=== PATIENT | female | born 1965 | race Caucasian/White ===

== ENCOUNTER 2016-09-28 20:42 | Emergency (ER) | payer BC ==
[~2016-09-28] VITALS: Ht 165.1 cm; Wt 50.8 kg
--- NOTE | 2016-09-28 20:53 | NUR ---
MC RA FROM HOME; PER EMS, PT TOOK UNKNOWN AMOUNT OF ATIVAN AND TYLENOL PM AND ALCOHOL. PT IS DROWSIE. PT AOX3. RR EVEN AND UNLABORED. NO SOB NOTED. NAD NOTED. NO NVD AT THIS TIME. PT NOT DIAPHORETIC. PT GOWNED AND PLACED ON MONITOR WAITING FOR MD WOODS.
[2016-09-28] MEDS ORDERED: IV NS 0.9% 1,000 ML BAG IV ONE ×2 (21:00→22:00)
[2016-09-28 21:05] LABS: BASOPHILS % (AUTO) 0.4 % (0.0-2.0); EOSINOPHILS # (AUTO) 0.1 /CMM (0.0-0.7); EOSINOPHILS % (AUTO) 0.9 % (0.0-6.0); HEMATOCRIT 44 % (33-45); HEMOGLOBIN 14.4 g/dL (11.5-14.8); LYMPHOCYTES # (AUTO) 3.4 /CMM (0.8-4.8); LYMPHOCYTES % (AUTO) 45.6 % (20.0-44.0); MEAN CORPUSCULAR HEMOGLOBIN 33 PG (26.0-33.0); MEAN CORPUSCULAR HGB CONC 33 g/dl (31.0-36.0); MEAN CORPUSCULAR VOLUME 101 fL (82-100); MONOCYTES # (AUTO) 0.2 /CMM (0.1-1.30); MONOCYTES % (AUTO) 3.3 % (2.0-12.0); NEUTROPHILS # (AUTO) 3.8 /CMM (1.8-8.9); NEUTROPHILS % (AUTO) 49.8 % (43.0-81.0); PLATELET COUNT (AUTO) 345 /CMM (150-450); RDW COEFFICIENT OF VARIATION 14.9 (11.5-15.0); RED BLOOD CELL COUNT(AUTO) 4.35 MIL/uL (4.0-5.2); WHITE BLOOD COUNT (AUTO) 7.5 K/uL (4.3-11.0)
[2016-09-28 21:15] LABS: CALCIUM, SERUM 8.7 mg/dL (8.5-10.1); CARBON DIOXIDE 30 mmol/L (21-32); CHLORIDE 110 mmol/L (98-107); CREATININE 0.8 mg/dL (0.6-1.3); GLUCOSE 108 mg/dL (74-106); POTASSIUM 3.3 mmol/L (3.5-5.1); SODIUM SERUM 147 mmol/L (136-145); UREA NITROGEN, BLOOD 8 mg/dL (7-18)
[2016-09-28 21:30] LABS: ALANINE AMINOTRANSFERASE 27 U/L (12-78); ALBUMIN 3.6 g/dL (3.4-5.0); ALCOHOL, BLOOD 374 mg/dL (0-0); ALKALINE PHOSPHATASE 54 U/L (46-116); ASPARTATE AMINOTRANSFERASE 29 U/L (15-37); BILIRUBIN,DIRECT 0.1 mg/dL (0.0-0.2); BILIRUBIN,TOTAL 0.2 mg/dL (0.2-1.0); TOTAL PROTEIN, SERUM 6.9 g/dL (6.4-8.2)
[2016-09-28 21:31] LABS: ACETAMINOPHEN < 10 ug/ml (10-30); SALICYLATE 0.7 mg/dL (2.8-20.0)
--- NOTE | 2016-09-28 21:55 | NUR ---
URINE COLLECTED. CALLED LAB FOR GUIDANCE CONSULTANT.
[2016-09-28] MEDS ORDERED: POTASSIUM CHLORIDE 20 MEQ TAB.PRT.SR PO ONE ×2 (21:59→22:00)
[2016-09-28 22:20] LABS: APPEARANCE,URINE CLEAR (CLEAR); BILIRUBIN,URINE NEGATIVE (NEGATIVE); BLOOD, URINE NEGATIVE Ery/uL (NEGATIVE); KETONES,URINE NEGATIVE (NEGATIVE); LEUKOCYTE ESTERASE ,URINE NEGATIVE (NEGATIVE); NITRITE, URINE NEGATIVE (NEGATIVE); PROTEIN,URINE NEGATIVE (NEGATIVE); UGLUCOSE NEGATIVE (NEGATIVE); UROBILINOGEN,URINE 0.2 EU/dL (0.2)
[2016-09-28 22:24] LABS: COLOR,URINE STRAW (YELLOW)
--- NOTE | 2016-09-29 03:30 | NUR ---
Patient is resting comfortably in bed with eyes closed. Easily aroused. VSS
--- NOTE | 2016-09-29 05:26 | NUR ---
Patient is resting comfortably in bed with eyes closed. Easily aroused. VSS. pt able to make needs known
--- NOTE | 2016-09-29 06:34 | NUR ---
PT AOX4 PT DENIES HI/SI. PT STATES "I ONLY DRANK WINE, I DID NOT TAKE ANY DRUGS"
--- NOTE | 2016-09-29 06:36 | NUR ---
AKILA FREEMAN MADE AWARE.
--- NOTE | 2016-09-29 06:50 | NUR ---
DR. WILBURN AT BEDSIDE FOR EVAL.
[2016-09-29] MEDS ORDERED: IV NS 0.9% 1,000 ML BAG IV ONE (07:00)
--- NOTE | 2016-09-29 07:09 | NUR ---
REPORT GIVEN TO KATEY KINGSTON FOR CONTINUE OF CARE.
--- NOTE | 2016-09-29 08:15 | NUR ---
IV removed. Catheter intact and site benign. Pressure and 4x4 applied to site. No bleeding noted.
--- NOTE | 2016-09-29 08:20 | NUR ---
PT SPOKE TO DAD AND MOM OVER THE PHONE. PT VERBALIZED SHE IS OK AT THE HOSPITAL AND WAITING FOR CRISIS TEAM AND ONCE SHE IS CLEARED WILL GO HOME .
--- NOTE | 2016-09-29 08:25 | NUR ---
PT AWAKE ALERT ORIENTED AMBULATORY WITHOUT ASSISTANCE STEADY GAIT DURING TRANSFER TO ANOTHER ROOM . PT ABLE TO MAKE DECISION.
--- NOTE | 2016-09-29 08:25 | NUR ---
PT WAS MOVED TO ER BED1 WILL AWAITING SITTER PT LEFT UNNOTICED [facility].
[2016-09-29 08:28] VITALS: BP 112/77
--- NOTE | 2016-09-29 08:37 | NUR ---
CALLED CLINICIAN -- [facility] [phone] SHE WILL BE HERE IN 60MIN
--- NOTE | 2016-09-29 08:40 | NUR ---
SUSAN DEL TORO,HOUSE SUP, CALLED FOR A SITTER
--- NOTE | 2016-09-29 08:59 | NUR ---
[facility] CALLED,SPOKE WITH ASSOCIATE PROFESSOR OF THEAT[phone],STS, SHE WILL SEND A UNIT
--- NOTE | 2016-09-29 09:53 | NUR ---
[facility] WAS HERE. DR WILBURN TOLD [facility] AND NOTES PT NOT SUICIDAL .
--- NOTE | 2016-09-29 10:09 | NUR ---
Patient eloped from facility. ER MD DR WILBURN notified.
== END 2016-09-29 10:16 | disposition left against medical advice (07) ==
LOC: ER 20:43 → TELE-TD 22:24 → UNDOADMIN 22:24 → ER 09-29 10:16
DX: F10.129 Alcohol abuse with intoxication, unspecified (principal); F25.9 Schizoaffective disorder, unspecified; R45.6 Violent behavior; F32.9 Major depressive disorder, single episode, unspecified; Y90.8 Blood alcohol level of 240 mg/100 ml or more
CPT/HCPCS: 36415; 80048-TC; 80076-TC; 80305; 81000-TC; 84703-TC; 85025-TC; A4606; G0480; J3490; J7030; Z7610

== ENCOUNTER 2020-09-02 10:24 | Inpatient (IN) | payer MEDICAID, MEDICARE ==
[~2020-09-02] VITALS: Ht 162.6 cm; Wt 57.2 kg
--- NOTE | 2020-09-02 11:30 | NUR ---
RN NOTE- PT IS A 54 Y/O FEMALE BROUGHT INTO FACILITY FROM ANOTHER HOSPITAL ON A CONSERVATORSHIP. A DETAIN AND TREAT ORDER IS SIGNED AND IN THE CHART THOUGH INITIAL HOLD IS UP. ON FACE TO FACE ASSESSMENT, PT IS ALERT ORIENTED TO PERSON PLACE, HYPERVERBAL W PRESSURED SPEECH AND LOOSE ASSOCIATIONS. PT TALKS ABOUT HER MEDS "I HAVEN'T HAD MY ADDERALL AND I NEED MY MORNING MEDS." FOCUS ON MEDS AND DC. OPPOSITIONAL TO CARE AT START. REFUSED TO GIVE UP BRA W WIRE. PT CONSENTED AFTER SPEAKING W THIS RN. VS- BP- 134/84, HR- 63, RR- 20, T-97.7, SATS 99% RA. ACCU CHECK COMPLETED / BS - 98, MRSA SWAB COMPLETED. PT AMBULATORY, SKIN INTACT EXCEPT DOG BITE TO ANTECUBITAL ASPECT RT ARM. RESOLVING CELLULITIS. NOT OPEN AT PRESENT. WOUND CONSUL ORDERED. 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 PT TOX SCREEN + FOR BENZO /METH. LABS WNL . ALLERGIES - SULFA. AMPICILLIN, LACTOSE INTOLERANCE. PT VALUABLES STORED PER POLICY. REFUSES VACCINATIONS. REG VEG DIET ORDERED. ORIENTED TO UNIT. PT RIGHTS HANDBOOK GIVEN. PT HOLD ORIGINALLY WRITTEN SHE BECAME AGGRESSIVE AT HOME W FAMILY BY PUSHING MOTHER. DR MCCONNELL NOTIFIED ADMIT. ORDERS GIVEN. COMPLIED, DR IZAGUIRRE NOTIFIED OF ADMIT .
[2020-09-02] MEDS ORDERED: ARIP15TA18 PO (11:46)
[2020-09-02] MEDS ORDERED: TRAZ-257 PO (11:46)
[2020-09-02] MEDS ORDERED: ESCI10TA PO (11:46)
[2020-09-02] MEDS ORDERED: DEXT30TA10 PO (11:46)
[2020-09-02] MEDS ORDERED: METF-881 PO (11:46)
[2020-09-02] MEDS ORDERED: IBUP-1957 PO (11:46)
[2020-09-02] MEDS ORDERED: LEVO88TA5 PO (11:46)
[2020-09-02] MEDS ORDERED: LORAZEPAM 0.5 MG TABLET PO PRN (12:00)
[2020-09-02] MEDS ORDERED: BLOOD SUGAR DIAGNOSTIC 1 EACH STRIP IN ONE (12:00)
[2020-09-02] MEDS ORDERED: MAGNESIUM HYDROXIDE 30 ML UDC PO PRN (12:00)
[2020-09-02] MEDS ORDERED: TEMAZEPAM 7.5 MG CAPSULE PO PRN (12:00)
[2020-09-02] MEDS: IBUPROFEN 400 MG TABLET PO PRN (14:43)
--- NOTE | 2020-09-02 14:45 | NUR ---
RN NOTE- PT W GENERALIZED PAIN AND ANXIETY. IBUPROFEN 800 MG AND ATIVAN 0.5 MG GIVEN
--- NOTE | 2020-09-02 15:33 | NUR ---
RN NOTE- PT FOCUSED ON RX , CONSTANTLY WALKING TO RN STATION WINDOW DEMANDING PILLS, "I NEED MY TRAZADONE AND ADDERALL." PT HAS APPROACHED DESK ABOUT EVERY FIVE TO TEN MINUTES REQUESTING PILLS. DIRECTED BACK TO ROOM AND UNIT,.ATIVAN 0.5 GIVEN EARLIER WITH NO DECREASE IN BEHAVIORS. DR MCCONNELL AWARE.
[2020-09-02 16:00] VITALS: BP 151/99
[2020-09-02] MEDS: LORAZEPAM 1 MG TABLET PO PRN ×2 (16:25→22:31)
--- NOTE | 2020-09-02 16:25 | NUR ---
RN NOTE- PT W CONTINUED ESCALATING BEHAVIORS. DR MCCONNELL CHANGED RX TO ATIVAN 1 MG PO Q6H PRN FIRST DOSE NOW. COMPLIED AND GIVEN
[2020-09-02] MEDS ORDERED: OLANZAPINE 10 MG VIAL IM STA (19:28)
--- NOTE | 2020-09-02 19:29 | NUR ---
RN NOTE- PT LABILE PACING CONTINUED MED REQUESTS AND AGITATION. PT UNABLE TO BE REDIRECTED. STATES "IM LEAVING." PT REQUESTING SHOT. DR MCCONNELL NOTIFIED. ZYPREXA 5 MG IM STAT ORDERED.
[2020-09-02 20:00] VITALS: BP 126/74
[2020-09-03 06:14] LABS: BASOPHILS # (AUTO) 0.1 /CMM (0.0-0.2); BASOPHILS % (AUTO) 1.3 % (0.0-2.0); EOSINOPHILS % (AUTO) 2.9 % (0.0-6.0); HEMATOCRIT 40 % (33-45); HEMOGLOBIN 13.8 g/dL (11.5-14.8); LYMPHOCYTES % (AUTO) 35.4 % (20.0-44.0); MEAN CORPUSCULAR HGB CONC 35 g/dl (31.0-36.0); MEAN CORPUSCULAR VOLUME 100 fL (82-100); MONOCYTES # (AUTO) 0.5 /CMM (0.1-1.30); MONOCYTES % (AUTO) 8.3 % (2.0-12.0); NEUTROPHILS # (AUTO) 2.9 /CMM (1.8-8.9); NEUTROPHILS % (AUTO) 52.1 % (43.0-81.0); PLATELET COUNT (AUTO) 280 /CMM (150-450); RED BLOOD CELL COUNT(AUTO) 3.99 MIL/uL (4.0-5.2); WHITE BLOOD COUNT (AUTO) 5.6 K/uL (4.3-11.0)
[2020-09-03 07:03] LABS: ALBUMIN 3.6 g/dL (3.4-5.0); BILIRUBIN,DIRECT 0.1 mg/dL (0.0-0.2); BILIRUBIN,TOTAL 0.3 mg/dL (0.2-1.0); CREATININE 0.8 mg/dL (0.6-1.3); MAGNESIUM 1.8 mg/dL (1.8-2.4); PHOSPHORUS 3.8 mg/dL (2.5-4.9); POTASSIUM 4.5 mmol/L (3.5-5.1); TOTAL PROTEIN, SERUM 6.4 g/dL (6.4-8.2)
[2020-09-03 07:17] LABS: CHOLESTEROL 151 mg/dL (<200); HDL CHOLESTEROL 35 mg/dL (40-60); LDL 85 mg/dL (0-99); TRIGLYCERIDES 180 mg/dL (30-150)
[2020-09-03] MEDS: LEVOTHYROXINE SODIUM 88 MCG TABLET PO SCH ×2 (07:30→09:30)
[2020-09-03 08:00] VITALS: BP 142/72
[2020-09-03 08:21] LABS: THYROID STIMULATING HORMONE 3.224 uIU/mL (0.358-3.74)
[2020-09-03] MEDS: METFORMIN XR 500 MG TAB.SR.24H PO SCH ×2 (09:00→09:30)
--- NOTE | 2020-09-03 09:38 | NUR ---
WOUND CARE CONSULT: PT PRESENTS WITH DISCOLORATION TO RT FOREARM WITH DRY SCABS, PRESENT ON ADMISSION. NO ERYTHEMA, DRAINAGE OR TENDERNESS NOTED. MD TO EXAMINE PT. WILL SEE PRN.
[2020-09-03] MEDS: LORAZEPAM 1 MG TABLET PO PRN ×3 (10:25→22:08)
--- NOTE | 2020-09-03 10:25 | NUR ---
GIVEN ATIVAN 1 MG FOR SEVERE AGITATION.
--- NOTE | 2020-09-03 10:30 | NUR ---
JOSEPH ELLIS RN IN AND SUGGESTED TO TAX EVALUATOR THAT DR. LONGO BE CALLED TO LOOK AT DOG BITE RT. ARM.SLIGHT BRUISING,NO ERYTHEMA OR DRAINAGE.OPEN TO AIR.PT. STATES OCCURRED [address] MO AGO[address]CALL OUT TO DR. LONGO WITH NO RETURN CALL.
[2020-09-03] MEDS: GABAPENTIN 100 MG CAPSULE PO SCH ×2 (13:00→16:48)
--- NOTE | 2020-09-03 13:10 | NUR ---
Conservator Contact: SW contacted the pts conservator, Grabiel ([phone]), and discussed possible placement options for her. He stated that he did not want the pt to return to their home and asked what the SW recommends for placement. SW stated that the usual step down from the hospital is a SNF and stated that assisted livings and board and cares are also an option. Pts conservator stated that he wants referrals to be sent out so that he has options.
[2020-09-03] MEDS: IBUPROFEN 400 MG TABLET PO PRN ×2 (13:50→20:57)
--- NOTE | 2020-09-03 13:58 | NUR ---
given motrin for pain on top of head.teary eyed and still asking for adderall.she did additionally ask dr. zhu for this with her visit today.
--- NOTE | 2020-09-03 14:23 | NUR ---
Initial Discharge Plan: Pt currently resides at her house with her family located at [address] [place] [address]; ([phone]). Per pt, she would like to go home. Per conservator and father, Grabiel ([phone]), the pt needs placement. SW will work with the pt conservator and MD regarding appropriate discharge planning. SW will form a safe and proper discharge.
--- NOTE | 2020-09-03 14:35 | NUR ---
RN NOTE- PT W CONTINUED ESCALATION, YELLING CRYING AND REQUESTING ADDERALL. PT AGITATED AND AGITATING OTHER PTS ON UNIT. DR MCCONNELL NOTIFIED. ZYPREXA 5 MG IM ORDERED STAT. COMPLIED.
[2020-09-03] MEDS ORDERED: OLANZAPINE 10 MG VIAL IM STA (14:36)
--- NOTE | 2020-09-03 14:40 | NUR ---
RN NOTE- ZYPREXA 5 MG IM GIVEN WITH STAFF ASSIST. TOLERATED WELL.
[2020-09-03 16:00] VITALS: BP 129/99
--- NOTE | 2020-09-03 16:10 | NUR ---
heard loud noise,found pt. banging head on wall.
--- NOTE | 2020-09-03 16:16 | NUR ---
given ativan for severe agitation.
--- NOTE | 2020-09-03 16:19 | NUR ---
RN NOTE- PT WAS ASLEEP BUT SHE WOKE UP AND STRUCK HEAD AGAINST WALL SCREAMING "I'M ALLERGIC TO ANTIPSYCHOTICS" NO INJURY NOTED, REDIRECTED, DR MCCONNELL MADE AWARE.
--- NOTE | 2020-09-03 18:15 | NUR ---
THROWING LIQUIDS AND FOOD ON FLOOR,STATES SHE'S VOMITING.
--- NOTE | 2020-09-03 19:30 | NUR ---
GPS-RN NOTES: PATIENT IS PACING BACK AND FORTH IN THE NURSING STATION. PATIENT REMAINS LABILE, MANIPULATIVE, AGITATED, ANXIOUS, CONTINUED MED REQUESTS AND UNABLE TO REDIRECT BEHAVIOR. PATIENT IS REQUESTING FOR IM SHOT. DR. MCCONNELL NOTIFIED BY CHARGE NURSE AND OBTAINED ORDER FOR ZYPREXA 5MG IM STAT NOTED AND CARRIED OUT. WILL CONTINUE TO MONITOR FOR PATIENT'S SAFETY.
[2020-09-03] MEDS ORDERED: OLANZAPINE 10 MG VIAL IM ONE (20:00)
[2020-09-03 20:15] VITALS: BP 144/82
--- NOTE | 2020-09-03 20:59 | NUR ---
GPS-RN NOTES: PATIENT C/O GENERALIZED BODY PAIN, ON A PAIN SCALE OF 7/10. PRN IBUPROFEN 800MG PO GIVEN PER PT'S REQUEST. WILL CONTINUE TO REASSESS.
[2020-09-03] MEDS ORDERED: GABAPENTIN 300 MG CAPSULE PO SCH (22:00)
--- NOTE | 2020-09-03 22:08 | NUR ---
GPS-RN NOTES: ANXIETY PATIENT IS ANXIOUS AND RESTLESS. PRN ATIVAN 1MG PO GIVEN. WILL CONTINUE TO MONITOR FOR PATIENT'S SAFETY.
[2020-09-04] MEDS: IBUPROFEN 400 MG TABLET PO PRN ×3 (06:55→21:06)
--- NOTE | 2020-09-04 06:56 | NUR ---
GPS-RN NOTES: PATIENT C/O PAIN ON TOP OF HEAD ON A PAIN SCALE OF 7/10. PRN MOTRIN 800MG PO GIVEN PER PT'S REQUEST. WILL CONTINUE TO REASSESS.
[2020-09-04 08:00] VITALS: BP 127/65
[2020-09-04] MEDS: METFORMIN XR 500 MG TAB.SR.24H PO SCH ×2 (08:04→08:35)
[2020-09-04] MEDS: LEVOTHYROXINE SODIUM 88 MCG TABLET PO SCH (08:04)
[2020-09-04] MEDS: GABAPENTIN 100 MG CAPSULE PO SCH ×3 (08:04→16:19)
--- NOTE | 2020-09-04 08:35 | NUR ---
Pt. refused to take Glucophage XR, offered 3x and still refusing and said "I'm not taking that med and I'm not diabetic".
[2020-09-04] MEDS: LORAZEPAM 1 MG TABLET PO PRN ×2 (11:14→17:19)
[2020-09-04] MEDS ORDERED: OLANZAPINE 10 MG VIAL IM ONE (12:00)
[2020-09-04] MEDS: ARIPIPRAZOLE 5 MG TABLET PO SCH ×2 (12:00→16:18)
--- NOTE | 2020-09-04 13:19 | NUR ---
Pt. is complaining of head pain and Ibuprofen 800 mg given.
--- NOTE | 2020-09-04 13:59 | NUR ---
Clarified Dr. Sawyer regarding the Zyprexa IM order. To give Zyprexa 5 mg IM prn BID of refused Abilify 5 mg po BID.
[2020-09-04] MEDS ORDERED: OLANZAPINE 10 MG VIAL IM PRN (14:00)
[2020-09-04 16:00] VITALS: BP 141/92
[2020-09-04 19:42] VITALS: BP 124/76
--- NOTE | 2020-09-04 21:06 | NUR ---
GPS-RN NOTES: PATIENT COMPLAINING OF HEAD PAIN. PRN MOTRIN 800MG PO GIVEN. WILL CONTINUE TO MONITOR FOR EFFECTIVENESS OF THE MEDICATION.
[2020-09-04] MEDS: TEMAZEPAM 7.5 MG CAPSULE PO PRN ×2 (21:23→22:14)
--- NOTE | 2020-09-04 22:14 | NUR ---
GPS-RN NOTES: PATIENT C/O INABILITY TO SLEEP. PRN RESTORIL 7.5MG PO GIVEN. WILL CONTINUE TO MONITOR FOR THE EFFECTIVENESS. PRN RESTORIL 7.5MG PO GIVEN @2122 INEFFECTIVE. PRN RESTORIL 7.5MG PO HSMR X1 GIVEN @2213. WILL CONTINUE TO MONITOR.
[2020-09-05] MEDS: LORAZEPAM 1 MG TABLET PO PRN ×4 (00:14→22:32)
--- NOTE | 2020-09-05 00:14 | NUR ---
GPS-RN NOTES: ANXIETY PATIENT IS ANXIOUS AND RESTLESS. PRN ATIVAN 1MG PO GIVEN. WILL CONTINUE TO MONITOR.
[2020-09-05 08:00] VITALS: BP 137/74
[2020-09-05] MEDS: ARIPIPRAZOLE 5 MG TABLET PO SCH (08:54)
[2020-09-05] MEDS: GABAPENTIN 100 MG CAPSULE PO SCH ×3 (08:55→16:28)
[2020-09-05] MEDS: METFORMIN XR 500 MG TAB.SR.24H PO SCH (08:55)
[2020-09-05] MEDS: LEVOTHYROXINE SODIUM 88 MCG TABLET PO SCH (08:55)
[2020-09-05] MEDS: IBUPROFEN 400 MG TABLET PO PRN ×2 (09:12→15:12)
--- NOTE | 2020-09-05 11:13 | NUR ---
GPS RN NOTE: PATIENT IN THE ROOM A/OX3. NO ACUTE DISTRESS NOTED. PATIENT REMAINS ANXIOUS, RESTLESS, MANIPULATIVE, HYPERVERBAL, INTRUSIVE, DEMANDING, NEEDY AND AGITATED.ATIVAN 1 MG PO PRN GIVEN NO VERBALIZATION OF THOUGHTS AND FEELINGS. SAFETY PRECAUTIONS IN PLACE.
--- NOTE | 2020-09-05 15:13 | NUR ---
GPS RN NOTE: PATIENT REQUEST MEDICATIONS FOR ANXIETY.ATIVAN 1 MG PO PRN GIVEN PER ORDER WILL CONTINUE MONITORING
[2020-09-05 16:00] VITALS: BP 156/82
[2020-09-05] MEDS ORDERED: ARIPIPRAZOLE 5 MG TABLET PO SCH (17:00)
[2020-09-05 20:40] VITALS: BP 151/97
[2020-09-05] MEDS ORDERED: GABAPENTIN 100 MG CAPSULE PO ONE (21:00)
[2020-09-05] MEDS: HYDROCODONE/APAP 5/325MG TABLET PO PRN (21:20)
[2020-09-06] MEDS: HYDROCODONE/APAP 5/325MG TABLET PO PRN ×4 (03:53→22:31)
[2020-09-06] MEDS: LORAZEPAM 1 MG TABLET PO PRN ×3 (06:30→18:37)
[2020-09-06 08:00] VITALS: BP 147/74
[2020-09-06] MEDS ORDERED: ARIPIPRAZOLE 5 MG TABLET PO SCH (08:36)
[2020-09-06] MEDS ORDERED: OLANZAPINE 10 MG VIAL IM PRN (09:00)
[2020-09-06] MEDS: ARIPIPRAZOLE 5 MG TABLET PO SCH ×2 (09:57→20:08)
[2020-09-06] MEDS: METFORMIN XR 500 MG TAB.SR.24H PO SCH (09:57)
[2020-09-06] MEDS: LEVOTHYROXINE SODIUM 88 MCG TABLET PO SCH (09:57)
[2020-09-06] MEDS: GABAPENTIN 100 MG CAPSULE PO SCH ×3 (09:57→17:15)
--- NOTE | 2020-09-06 10:06 | NUR ---
GIVEN NORCO-C/O PAIN LT LEG LATERALLY AND TOP OF HEAD.
--- NOTE | 2020-09-06 12:36 | NUR ---
given ativan for anxiety.
[2020-09-06 16:00] VITALS: BP 134/76
--- NOTE | 2020-09-06 16:07 | NUR ---
GIVEN NORCO FOR LT. LEG PAIN AND PAIN ON TOP OF HEAD.
--- NOTE | 2020-09-06 18:37 | NUR ---
GIVEN ATIVAN 1 MG PO FOR AGITATION.
--- NOTE | 2020-09-06 19:15 | NUR ---
RN OPENING NOTE PATIENT SITTING ON THE BED, A/O X 3. MOOD IS LABILE, AND SEEMS ANXIOUS, ALTHOUGH PATIENT IS COOPERATIVE. PATIENT DOES NOT SEEM TO BE IN ANY APPARENT DISTRESS. BREATHING EVEN AND UNLABORED. PATIENT IS AMBULATORY AND INDEPENDENT. SAFETY MEASURES IN PLACE: SIDE RAILS UP, BED IN LOCKED AND LOWEST POSITION. WILL MONITOR PATIENT CLOSELY.
[2020-09-06] MEDS: IBUPROFEN 400 MG TABLET PO PRN (20:08)
--- NOTE | 2020-09-06 20:08 | NUR ---
PATIENT GIVEN IBUPROFEN FOR LEG PAIN.
[2020-09-06 20:18] VITALS: BP 138/78
--- NOTE | 2020-09-06 22:30 | NUR ---
PATIENT GIVEN NORCO FOR PAIN ON BILATERAL LEGS.
[2020-09-07] MEDS: LORAZEPAM 1 MG TABLET PO PRN ×4 (01:05→22:00)
--- NOTE | 2020-09-07 01:07 | NUR ---
PATIENT REQUESTED ATIVAN FOR FEELING ANXIOUS. ATIVAN GIVEN, WILL RE-ASSESS BEHAVIOR.
[2020-09-07] MEDS: HYDROCODONE/APAP 5/325MG TABLET PO PRN ×2 (04:33→13:28)
--- NOTE | 2020-09-07 04:34 | NUR ---
NORCO GIVEN FOR THROBBING HEAD PAIN 10/21.
--- NOTE | 2020-09-07 06:40 | NUR ---
RN CLOSING NOTE PATIENT SEEN WITH EYES CLOSED, EASILY AWAKENED. STABLE AT THIS TIME, NO COMPLAINS OF PAIN OR DISCOMFORT. NO SIGNIFICANT CHANGES THROUGHOUT THE SHIFT. ALL NEEDS MET AND ATTENDED. ALL ORDERS CARRIED OUT. PAIN MANAGED. WILL ENDORSE TO DAY SHIFT NURSE FOR ISADORA.
[2020-09-07 08:00] VITALS: BP 122/69
[2020-09-07] MEDS: LEVOTHYROXINE SODIUM 88 MCG TABLET PO SCH (08:12)
[2020-09-07] MEDS: ARIPIPRAZOLE 5 MG TABLET PO SCH ×2 (09:23→21:21)
[2020-09-07] MEDS: METFORMIN XR 500 MG TAB.SR.24H PO SCH (09:23)
[2020-09-07] MEDS: GABAPENTIN 100 MG CAPSULE PO SCH ×3 (09:23→16:37)
--- NOTE | 2020-09-07 13:28 | NUR ---
RN-CO: NORCO GIVEN FOR 8/10 THROBBING PAIN.
--- NOTE | 2020-09-07 14:58 | NUR ---
RN-CO:PATIENT'S NORCO WAS CHANGED FROM Q6H TO Q8H PRN FOR PAIN, PER RECOMMENDATION OF DR MCCONNELL TO DR LONGO.
[2020-09-07 16:00] VITALS: BP 130/80
[2020-09-07] MEDS: IBUPROFEN 400 MG TABLET PO PRN (17:40)
--- NOTE | 2020-09-07 17:41 | NUR ---
RN-CO: IBUPROFEN 800 MG PO FOR LEFT LEG PAIN 08/21.
[2020-09-07] MEDS: TEMAZEPAM 7.5 MG CAPSULE PO PRN (20:25)
[2020-09-07] MEDS: ACETAMINOPHEN 325 MG TABLET PO PRN (20:27)
[2020-09-07 20:29] VITALS: BP 161/90
[2020-09-08] MEDS: IBUPROFEN 400 MG TABLET PO PRN ×2 (00:46→15:03)
[2020-09-08] MEDS: HYDROCODONE/APAP 5/325MG TABLET PO PRN ×3 (01:45→18:06)
[2020-09-08 08:00] VITALS: BP 146/90
[2020-09-08] MEDS: GABAPENTIN 100 MG CAPSULE PO SCH ×3 (08:17→16:39)
[2020-09-08] MEDS: LORAZEPAM 1 MG TABLET PO PRN ×2 (08:17→16:39)
[2020-09-08] MEDS: LEVOTHYROXINE SODIUM 88 MCG TABLET PO SCH (08:17)
[2020-09-08] MEDS: METFORMIN XR 500 MG TAB.SR.24H PO SCH (08:17)
[2020-09-08] MEDS: ARIPIPRAZOLE 5 MG TABLET PO SCH ×2 (08:17→20:27)
[2020-09-08 16:00] VITALS: BP 144/89
--- NOTE | 2020-09-08 16:00 | NUR ---
SNF Referral: KATHLEEN faxed a referral to [facility] with attn to Afia to the fax number: [phone]. Addendum: 09/08/2020 at 1402 by KATHLEEN Ferreira
--- NOTE | 2020-09-08 16:04 | NUR ---
[facility] Ref[facility]
[2020-09-08 20:00] VITALS: BP 136/73
[2020-09-08] MEDS: ACETAMINOPHEN 325 MG TABLET PO PRN (20:26)
[2020-09-09] MEDS: LORAZEPAM 1 MG TABLET PO PRN ×3 (00:39→17:11)
[2020-09-09] MEDS: HYDROCODONE/APAP 5/325MG TABLET PO PRN ×3 (02:33→18:40)
[2020-09-09 08:00] VITALS: BP 136/70
[2020-09-09] MEDS: ARIPIPRAZOLE 5 MG TABLET PO SCH ×2 (08:54→21:08)
[2020-09-09] MEDS: LEVOTHYROXINE SODIUM 88 MCG TABLET PO SCH (08:54)
[2020-09-09] MEDS: METFORMIN XR 500 MG TAB.SR.24H PO SCH (08:55)
[2020-09-09] MEDS: GABAPENTIN 100 MG CAPSULE PO SCH ×3 (08:55→17:11)
--- NOTE | 2020-09-09 09:09 | NUR ---
given ativan for nervousness.
--- NOTE | 2020-09-09 10:44 | NUR ---
given norco for pain at this time.
[2020-09-09] MEDS: IBUPROFEN 400 MG TABLET PO PRN (15:06)
--- NOTE | 2020-09-09 15:09 | NUR ---
given motrin for pain.
[2020-09-09 16:00] VITALS: BP 135/83
--- NOTE | 2020-09-09 17:11 | NUR ---
given ativan for agitation.
--- NOTE | 2020-09-09 18:40 | NUR ---
given norco for pain in leg and head.
[2020-09-09 20:00] VITALS: BP 132/64
[2020-09-09 20:22] VITALS: BP 132/64
[2020-09-09] MEDS: TEMAZEPAM 7.5 MG CAPSULE PO PRN (22:01)
--- NOTE | 2020-09-09 22:03 | NUR ---
RN NOTE: INSOMNIA PATIENT VERBALIZED THAT SHE IS UNABLE TO SLEEP & REQUESTED TO TAKE SLEEPING MEDICINE. PRN RESTORIL 7.5 MG 1 CAP PO ADMINISTERED. WILL CONTINUE TO MONITOR.
[2020-09-10] MEDS: LORAZEPAM 1 MG TABLET PO PRN ×2 (01:36→09:46)
--- NOTE | 2020-09-10 01:39 | NUR ---
RN NOTE: ANXIETY PATIENT VERBALIZED THAT SHE IS FEELING ANXIOUS, RESTLESS & REQUESTED TO TAKE ATIVAN. ATIVAN 1 MG PO PRN ADMINISTERED ORDERED. WILL MONITOR CLOSELY.
[2020-09-10] MEDS: HYDROCODONE/APAP 5/325MG TABLET PO PRN ×3 (03:11→19:55)
--- NOTE | 2020-09-10 03:12 | NUR ---
RN NOTE: PAIN PATIENT C/O RIGHT/LEFT LEG PAIN 5/10 & REQUESTED TO TAKE NORCO AT THIS TIME. PRN NORCO 5/325 MG 1 TAB PO ADMINISTERED. VITALS WNL. WILL CONTINUE TO MONITOR.
[2020-09-10] MEDS: IBUPROFEN 400 MG TABLET PO PRN ×2 (07:34→16:22)
[2020-09-10] MEDS: LEVOTHYROXINE SODIUM 88 MCG TABLET PO SCH (07:34)
--- NOTE | 2020-09-10 07:34 | NUR ---
RN NOTE- C/O GENERALIZED PAIN . MOTRIN 800 MG GIVEN
[2020-09-10 08:00] VITALS: BP 138/71
[2020-09-10] MEDS: METFORMIN XR 500 MG TAB.SR.24H PO SCH (08:05)
[2020-09-10] MEDS: GABAPENTIN 100 MG CAPSULE PO SCH ×3 (08:05→16:22)
[2020-09-10] MEDS: ARIPIPRAZOLE 5 MG TABLET PO SCH ×2 (08:05→20:20)
--- NOTE | 2020-09-10 09:00 | NUR ---
RN NOTE- RT W RAPID SPEECH HYPERVERBAL GRANDIOSE ,REQUESTING RX VIRTUALLY ON THE HOUR. DIRECTABLE HOWEVER W LIMITS SET, MED COMPLIANT PO INTAKE GOOD
--- NOTE | 2020-09-10 09:00 | NUR ---
RN NOTE- PT W ANXIETY. ATIVAN 1 MG GIVEN
[2020-09-10 16:00] VITALS: BP 126/82
--- NOTE | 2020-09-10 16:22 | NUR ---
RN NOTE- C/O PAIN GENERALIZED./ MOTRIN 800 MG GIVEN
[2020-09-10 20:17] VITALS: BP 141/88
[2020-09-11] MEDS: LORAZEPAM 1 MG TABLET PO PRN ×3 (01:52→20:04)
[2020-09-11] MEDS: HYDROCODONE/APAP 5/325MG TABLET PO PRN ×3 (04:56→21:27)
[2020-09-11 08:00] VITALS: BP 125/75
[2020-09-11] MEDS: LEVOTHYROXINE SODIUM 88 MCG TABLET PO SCH (08:09)
[2020-09-11] MEDS: GABAPENTIN 100 MG CAPSULE PO SCH ×3 (08:09→17:31)
[2020-09-11] MEDS: METFORMIN XR 500 MG TAB.SR.24H PO SCH (08:09)
[2020-09-11] MEDS: ARIPIPRAZOLE 5 MG TABLET PO SCH ×2 (08:10→21:14)
[2020-09-11] MEDS: IBUPROFEN 400 MG TABLET PO PRN ×2 (08:18→17:31)
--- NOTE | 2020-09-11 08:20 | NUR ---
RN NOTE - Motrin PRN given for headache. Patient compliant with meds, attention seeking, anxious, repeatedly requests to "speak with the doctor so I can get my adderol."
--- NOTE | 2020-09-11 12:10 | NUR ---
RN NOTE - Pt stating she is feeling anxious, requesting for Ativan. Ativan PRN given.
--- NOTE | 2020-09-11 13:19 | NUR ---
SNF Referral: SNF Referral: KATHLEEN faxed a referral to [facility] to the fax number: [phone].
--- NOTE | 2020-09-11 13:25 | NUR ---
RN NOTE - Shawn given PRN for left lower leg pain.
[2020-09-11 16:00] VITALS: BP 132/67
--- NOTE | 2020-09-11 16:22 | NUR ---
SNF referral: KATHLEEN faxed referral to [facility] at fax number: ([phone]).
--- NOTE | 2020-09-11 16:25 | NUR ---
SNF Referral: SW was in contacted with Timoteo at [facility] ([phone]). Pt was accepted to facility. SW is waiting on discharge date from doctor.
--- NOTE | 2020-09-11 20:06 | NUR ---
GPS RN NOTES PATIENT REPORT OF BEING ANXIOUS AT THIS TIME. ASKED FOR ATIVAN. GIVEN ATIVAN 1 MG PRN.
[2020-09-11 20:55] VITALS: BP 144/92
--- NOTE | 2020-09-11 21:28 | NUR ---
GPS RN NOTES PATIENT C/O 7/10 PAIN. PATIENT ASKED FOR GIVEN NORCO . GIVEN NORCO 5/325 PRN. WILL REASSESS.
[2020-09-11] MEDS: TEMAZEPAM 7.5 MG CAPSULE PO PRN (22:36)
--- NOTE | 2020-09-11 22:36 | NUR ---
GPS RN NOTES PATENT ASKED FOR RESTORIL. GIVEN RESTORIL PRN. WILL REASSESS.
[2020-09-12] MEDS: LORAZEPAM 1 MG TABLET PO PRN ×3 (04:05→20:46)
--- NOTE | 2020-09-12 04:05 | NUR ---
GPS RN NOTES PATENT GIVEN ATIVAN PRN AT THIS TIME.
[2020-09-12] MEDS: HYDROCODONE/APAP 5/325MG TABLET PO PRN ×3 (05:34→21:47)
--- NOTE | 2020-09-12 05:35 | NUR ---
GPS RN NOTES PATIENT GIVEN NORCO AT THIS TIME. COMPLAINING OF 7/10 PAIN. FACIAL GRIMACING, GRASPING SITE, AND IRRITABILITY.
--- NOTE | 2020-09-12 06:39 | NUR ---
GPS RN CLOSING NOTE PATIENT IN BED WITH EYES CLOSED, EASY TO AROUSE. NO S/S OF DISTRESS. PAIN MANAGED WITH MEDICATIONS. ALL NEEDS ATTENDED. SCHED MEDS ADMINISTERED. SAFETY KEPT THE WHOLE SHIFT. DID NOT REPORT ANY SUICIDAL IDEATION OR HOMICIDAL IDEATION. NO SIGNIFICANT CHANGE SINCE LAST SHIFT. WILL ENDORSE CARE TO MORNING RN.
[2020-09-12] MEDS: LEVOTHYROXINE SODIUM 88 MCG TABLET PO SCH ×2 (07:30→07:56)
[2020-09-12] MEDS: GABAPENTIN 100 MG CAPSULE PO SCH ×3 (07:55→16:41)
[2020-09-12] MEDS: METFORMIN XR 500 MG TAB.SR.24H PO SCH ×2 (07:56→09:00)
[2020-09-12] MEDS: ARIPIPRAZOLE 5 MG TABLET PO SCH ×2 (07:56→20:46)
[2020-09-12 08:00] VITALS: BP 133/74
--- NOTE | 2020-09-12 13:20 | NUR ---
Point of contact: SW called pts SW contacted the pts conservatorGrabiel ([phone]) to inform him that pt has been accepted to [facility] and there is not discharge date. Conservator does not want to discharge pt to [facility].
[2020-09-12 16:00] VITALS: BP 142/76
[2020-09-12] MEDS: IBUPROFEN 400 MG TABLET PO PRN (17:30)
--- NOTE | 2020-09-12 20:00 | NUR ---
RN NOTES ALERT/ORIENTED X3, ROOM AIR, RESTLESS, ATTENTION SEEKING, DRUG SEEKING, ANXIOUS TO GET ATIVAN AND NORCO EARLY. COMPLAINING OF HEADACHE, ANXIETY, INDEPENDENT WITH ADLS, AMBULATORY.
[2020-09-12 20:33] VITALS: BP 129/62
[2020-09-12] MEDS: MAG HYDROX/AL HYDROX/SIMETH 30 ML UDC PO PRN (22:51)
[2020-09-13] MEDS: TEMAZEPAM 7.5 MG CAPSULE PO PRN (02:02)
[2020-09-13] MEDS: LORAZEPAM 1 MG TABLET PO PRN ×3 (04:47→21:47)
[2020-09-13] MEDS: HYDROCODONE/APAP 5/325MG TABLET PO PRN ×3 (05:58→23:35)
[2020-09-13] MEDS: LEVOTHYROXINE SODIUM 88 MCG TABLET PO SCH (07:30)
[2020-09-13 08:00] VITALS: BP 124/83
[2020-09-13] MEDS: GABAPENTIN 100 MG CAPSULE PO SCH ×3 (08:09→17:34)
[2020-09-13] MEDS: ARIPIPRAZOLE 5 MG TABLET PO SCH ×2 (08:09→21:01)
[2020-09-13] MEDS: METFORMIN XR 500 MG TAB.SR.24H PO SCH (08:14)
[2020-09-13] MEDS: IBUPROFEN 400 MG TABLET PO PRN ×2 (08:46→17:47)
[2020-09-13 16:00] VITALS: BP 151/92
[2020-09-13 20:25] VITALS: BP 138/90
--- NOTE | 2020-09-13 21:51 | NUR ---
RN NOTE: ANXIETY PATIENT VERBALIZED THAT SHE IS FEELING ANXIOUS, RESTLESS, INSISTED & REQUESTED TO TAKE ATIVAN. ATIVAN 1 MG PO PRN ADMINISTERED ORDERED. WILL MONITOR CLOSELY.
--- NOTE | 2020-09-13 23:36 | NUR ---
RN NOTE: PAIN PATIENT C/O GENERALIZED BODY ACHE 08/21 & REQUESTED TO TAKE NORCO AT THIS TIME. PRN NORCO 5/325 MG 1 TAB PO ADMINISTERED. VITALS ARE 143/86, 77, 18, 98, 99% AT RA. WILL CONTINUE TO MONITOR.
[2020-09-14] MEDS: TEMAZEPAM 7.5 MG CAPSULE PO PRN (01:51)
[2020-09-14] MEDS: LORAZEPAM 1 MG TABLET PO PRN ×2 (06:22→15:59)
--- NOTE | 2020-09-14 06:25 | NUR ---
RN NOTE: ANXIETY PATIENT VERBALIZED THAT SHE IS FEELING ANXIOUS, CRYING, IRRITABLE, AGITATED, RESTLESS, REQUESTED TO TAKE ATIVAN. ATIVAN 1 MG PO PRN ADMINISTERED ORDERED. WILL MONITOR CLOSELY.
[2020-09-14] MEDS: LEVOTHYROXINE SODIUM 88 MCG TABLET PO SCH (07:30)
[2020-09-14] MEDS: HYDROCODONE/APAP 5/325MG TABLET PO PRN ×2 (07:57→20:14)
[2020-09-14 08:00] VITALS: BP 143/92
[2020-09-14] MEDS: METFORMIN XR 500 MG TAB.SR.24H PO SCH (08:18)
[2020-09-14] MEDS: GABAPENTIN 100 MG CAPSULE PO SCH ×3 (08:19→16:05)
[2020-09-14] MEDS: ARIPIPRAZOLE 5 MG TABLET PO SCH ×2 (08:20→21:38)
[2020-09-14] MEDS: IBUPROFEN 400 MG TABLET PO PRN ×2 (10:52→17:41)
--- NOTE | 2020-09-14 15:00 | NUR ---
GPS/RN PT'S FATHER REQUESTED TO TAPER OFF NORCO (EXTENDING TIME BETWEEN ADMINISTRATIONS) AND TO ASK PSYCHIATRIST TO CALL HIM BACK. GIOVANNY WALDEN CALLED FOR NEW ORDERS ON NORCO. DR MCCONNELL CALLED AND MADE AWARE OF PT FAMILY REQUEST.
[2020-09-14 16:00] VITALS: BP 153/91
[2020-09-14 20:10] VITALS: BP 144/83
[2020-09-14 20:57] VITALS: BP 144/83
[2020-09-14] MEDS: MAG HYDROX/AL HYDROX/SIMETH 30 ML UDC PO PRN (22:44)
--- NOTE | 2020-09-14 22:46 | NUR ---
RN NOTE: INDIGESTION PATIENT C/O UPSET STOMACH & REQUESTED TO TAKE MEDICINE. PRN MAALOX ADMINISTERED ORDERED. WILL CONTINUE TO MONITOR.
[2020-09-15] MEDS: LORAZEPAM 1 MG TABLET PO PRN ×3 (01:16→17:33)
--- NOTE | 2020-09-15 01:18 | NUR ---
RN NOTE: ANXIETY PATIENT VERBALIZED THAT SHE IS FEELING ANXIOUS, RESTLESS, REQUESTED TO TAKE ATIVAN. ATIVAN 1 MG PO PRN ADMINISTERED ORDERED. WILL MONITOR CLOSELY.
[2020-09-15 08:00] VITALS: BP 140/83
[2020-09-15] MEDS: ARIPIPRAZOLE 5 MG TABLET PO SCH (08:00)
[2020-09-15] MEDS: LEVOTHYROXINE SODIUM 88 MCG TABLET PO SCH (08:00)
[2020-09-15] MEDS: HYDROCODONE/APAP 5/325MG TABLET PO PRN ×2 (08:00→20:07)
[2020-09-15] MEDS: GABAPENTIN 100 MG CAPSULE PO SCH ×3 (08:00→16:24)
[2020-09-15] MEDS: METFORMIN XR 500 MG TAB.SR.24H PO SCH (08:00)
--- NOTE | 2020-09-15 09:00 | NUR ---
RN NOTE- CONTINUES W CONSTANT MED SEEKING BEHAVIORS. RECEIVED PT IN BED RESTING, EASY TO AROUSE. NO C/O PAIN AT THIS TIME. NO S/S OF APPARENT DISTRESS. PT IS AMBULATORY.VSS. DAILY MEDS COMPLIANT
--- NOTE | 2020-09-15 09:23 | NUR ---
RN NOTE- ANXIETY STATED- ATIVAN 1MG GIVEN
[2020-09-15] MEDS ORDERED: HALOPERIDOL LACTATE INJ 5 MG/ML VIAL IM PRN (12:00)
[2020-09-15] MEDS: IBUPROFEN 400 MG TABLET PO PRN ×2 (12:33→23:56)
--- NOTE | 2020-09-15 12:33 | NUR ---
RN NOTE- PAIN STATED GENERALIZED. MOTRIN 800 MG GIVEN
[2020-09-15] MEDS: HALOPERIDOL 5 MG TABLET PO SCH ×2 (12:44→16:24)
[2020-09-15 16:00] VITALS: BP 155/81
[2020-09-15] MEDS: BENZTROPINE MESYLATE (1 MG) 1 MG TABLET PO SCH (16:24)
--- NOTE | 2020-09-15 17:33 | NUR ---
RN NOTE-- PACING IN HALLS PROFANE, SCREAMING AT FATHER ON PHONE, LEAVING RASH MESSAGES. EXPLAINED THAT ATIVAN IS NOW Q12 H AND THIS WOULD BE HER LAST DOSE UNTIL TOMORROW MORNING. PACKAGE COLLECTOR EXPLAINED TO PT BUT SHE INSISTS ON ATIVAN NOW. ATIVAN 1 MG GIVEN
[2020-09-15 20:05] VITALS: BP 144/88
--- NOTE | 2020-09-15 20:08 | NUR ---
RN NOTE: PAIN PATIENT C/O GENERALIZED BODY PAIN 5/10, REQUESTED TO TAKE NORCO AT THIS TIME. PRN NORCO 5/325 MG 1 TAB PO ADMINISTERED. VS WNL. WILL CONTINUE TO MONITOR CLOSELY.
--- NOTE | 2020-09-15 23:59 | NUR ---
RN NOTE PATIENT C/O LEFT LEG PAIN 06/21 & REQUESTED TO TAKE IBUPROFEN AT THIS TIME. PRN IBUPROFEN 800 MG PO ADMINISTERED. WILL CONTINUE TO MONITOR.
[2020-09-16] MEDS: TEMAZEPAM 7.5 MG CAPSULE PO PRN ×2 (01:04→23:16)
[2020-09-16] MEDS: LORAZEPAM 1 MG TABLET PO PRN ×2 (05:34→16:46)
--- NOTE | 2020-09-16 05:35 | NUR ---
RN NOTE: ANXIETY PATIENT VERBALIZED THAT SHE IS FEELING ANXIOUS, RESTLESS, REQUESTED TO TAKE ATIVAN. ATIVAN 1 MG PO PRN ADMINISTERED ORDERED. WILL MONITOR CLOSELY.
[2020-09-16 08:00] VITALS: BP 144/74
[2020-09-16] MEDS: HALOPERIDOL 5 MG TABLET PO SCH ×3 (08:05→16:46)
[2020-09-16] MEDS: METFORMIN XR 500 MG TAB.SR.24H PO SCH (08:05)
[2020-09-16] MEDS: GABAPENTIN 100 MG CAPSULE PO SCH ×3 (08:05→17:25)
[2020-09-16] MEDS: BENZTROPINE MESYLATE (1 MG) 1 MG TABLET PO SCH ×2 (08:05→16:46)
[2020-09-16] MEDS: LEVOTHYROXINE SODIUM 88 MCG TABLET PO SCH (08:06)
[2020-09-16] MEDS: HYDROCODONE/APAP 5/325MG TABLET PO PRN ×2 (08:21→21:41)
--- NOTE | 2020-09-16 09:00 | NUR ---
RN NOTE-FIRST CONTACT THIS MORNING, PT ASKING ABOUT NORCO. REPEATED SEVERAL REQUESTS FOR PAINMEDS. NO S/S OF APPARENT DISTRESS. PT IS AMBULATORY.VSS. DAILY MEDS COMPLIANT
--- NOTE | 2020-09-16 10:06 | NUR ---
Discharge Plan Update Spoke with Grabiel Palacio #[phone] ( father). He spoke with Dr Mcgovern yesterday and Dr Mcgovern has made medication changes. Father does not want patient to go to [facility] as " the average age of patients is 80 there". He wants a facility with younger patients. Will discuss with assigned social service technician, Father is somewhat unrealistic. material preparation worker will explore other facilities but father may need some education around placement. [facility] has younger residents as well. Spoke with Dr Mcgovern who spoke to father/dick yesterday.
[2020-09-16] MEDS: IBUPROFEN 400 MG TABLET PO PRN ×2 (12:23→23:26)
--- NOTE | 2020-09-16 12:23 | NUR ---
RN NOTE- PT C/O PAIN GENERALIZED TO BACK AND HIPS. MOTRIN 800 MG GIVEN
[2020-09-16 16:00] VITALS: BP 144/75
--- NOTE | 2020-09-16 16:46 | NUR ---
RN NOTE- ANXIETY RESTLESSNESS AGITATION, CURSING ON PHONE AT FATHER AND THREATENING. ATIVAN 1 MG GIVEN
[2020-09-16 20:24] VITALS: BP 145/93
--- NOTE | 2020-09-16 21:41 | NUR ---
RN NOTE ADMINISTER NORCO PER PATIENT REQUEST FOR LEFT LEG PAIN 08/21. WILL CONTINUE TO MONITOR THROUGHOUT THE SHIFT.
[2020-09-16] MEDS: MAG HYDROX/AL HYDROX/SIMETH 30 ML UDC PO PRN (23:16)
--- NOTE | 2020-09-16 23:28 | NUR ---
RN NOTE ADMINISTERED RESTORIL AND MAALOX PER PATIENT REQUEST. PATIENT ALSO REQUESTED MOTRIN FOR HER LEG PAIN. WILL CONTINUE TO MONITOR THROUGHOUT SHIFT.
[2020-09-17] MEDS: LORAZEPAM 1 MG TABLET PO PRN ×2 (05:03→17:15)
[2020-09-17] MEDS: MAG HYDROX/AL HYDROX/SIMETH 30 ML UDC PO PRN (05:52)
--- NOTE | 2020-09-17 05:53 | NUR ---
RN NOTE ADMINISTERED PRN MAALOX PER PATIENT REQUEST. STATES STILL FEEL INDIGESTION. WILL CONTINUE TO MONITOR THROUGHOUT SHIFT.
[2020-09-17 08:00] VITALS: BP 150/85
[2020-09-17] MEDS: LEVOTHYROXINE SODIUM 88 MCG TABLET PO SCH (08:04)
[2020-09-17] MEDS: GABAPENTIN 100 MG CAPSULE PO SCH ×2 (08:22→12:18)
[2020-09-17] MEDS: METFORMIN XR 500 MG TAB.SR.24H PO SCH (08:22)
[2020-09-17] MEDS: HALOPERIDOL 5 MG TABLET PO SCH ×3 (08:22→17:15)
[2020-09-17] MEDS: BENZTROPINE MESYLATE (1 MG) 1 MG TABLET PO SCH ×2 (08:22→17:15)
--- NOTE | 2020-09-17 09:55 | NUR ---
SNF Referral: SW faxed a referral to the following two facilities: [facility] with attn to Jaden to the fax number: [phone] [facility] with attn to Emiliana to the fax number: [phone].
[2020-09-17] MEDS: HYDROCODONE/APAP 5/325MG TABLET PO PRN ×2 (10:13→21:38)
[2020-09-17] MEDS: LISINOPRIL (10MG) 10 MG TABLET PO SCH (10:15)
--- NOTE | 2020-09-17 10:46 | NUR ---
SNF Contact: Emiliana ([phone]) from [facility] contacted the SW and stated that the pt was accepted to their facility.
--- NOTE | 2020-09-17 10:47 | NUR ---
Conservator Contact: KATHLEEN contacted the pts conservator, Grabiel ([phone]), and was unable to make contact or leave a message due to a dial tone.
[2020-09-17] MEDS: IBUPROFEN 400 MG TABLET PO PRN ×2 (12:18→20:03)
--- NOTE | 2020-09-17 12:20 | NUR ---
Family Contact: Pts mother, Zacarias ([phone]), contacted the SW and asked for an update. SW stated that the pt was accepted to [facility] and the pts mother stated that she would go see how the facility is.
--- NOTE | 2020-09-17 13:43 | NUR ---
Family Contact: Pts mother, Zacarias ([phone]), contacted the and stated that she took a virtual tour of [facility] and that she approves of the facility. She stated that she wants to speak with her first and will get back to the the following day.
[2020-09-17 16:08] VITALS: BP 140/88
[2020-09-17] MEDS: GABAPENTIN 300 MG CAPSULE PO SCH (17:15)
[2020-09-17 20:03] VITALS: BP 139/109
--- NOTE | 2020-09-17 20:04 | NUR ---
GPS-RN NOTES: LOWER BACK PAIN PATIENT C/O LOWER BACK PAIN ON A PAIN SCALE OF 6/10. PRN IBUPROFEN 800MG PO GIVEN. WILL CONTINUE TO REASSESS.
[2020-09-17] MEDS: TEMAZEPAM 7.5 MG CAPSULE PO PRN (23:55)
--- NOTE | 2020-09-17 23:55 | NUR ---
GPS-RN NOTES: INSOMNIA PATIEN C/O INABILITY TO SLEEP. PRN RESTORIL 7.5MG PO GIVEN. WILL CONTINUE TO MONITOR.
[2020-09-18] MEDS: TEMAZEPAM 7.5 MG CAPSULE PO PRN (02:19)
[2020-09-18] MEDS: LORAZEPAM 1 MG TABLET PO PRN (04:24)
--- NOTE | 2020-09-18 04:25 | NUR ---
GPS-RN NOTES: ANXIETY PATIENT IS ANXIOUS AND RESTLESS. PRN ATIVAN 1MG PO GIVEN. WILL CONTINUE TO MONITOR.
[2020-09-18 08:00] VITALS: BP 137/92
[2020-09-18] MEDS: HALOPERIDOL 5 MG TABLET PO SCH ×4 (08:00→21:14)
[2020-09-18] MEDS: LEVOTHYROXINE SODIUM 88 MCG TABLET PO SCH (08:00)
[2020-09-18] MEDS: METFORMIN XR 500 MG TAB.SR.24H PO SCH (08:00)
[2020-09-18] MEDS: LISINOPRIL (10MG) 10 MG TABLET PO SCH (08:00)
[2020-09-18] MEDS: BENZTROPINE MESYLATE (1 MG) 1 MG TABLET PO SCH ×2 (08:00→16:31)
[2020-09-18] MEDS: GABAPENTIN 300 MG CAPSULE PO SCH ×3 (08:00→16:31)
[2020-09-18] MEDS: HYDROCODONE/APAP 5/325MG TABLET PO PRN ×2 (09:21→21:29)
[2020-09-18] MEDS ORDERED: hydrOXYzine PAMOATE 25 MG CAPSULE PO PRN (12:00)
[2020-09-18] MEDS ORDERED: HALOPERIDOL LACTATE INJ 5 MG/ML VIAL IM PRN (12:00)
[2020-09-18] MEDS: IBUPROFEN 400 MG TABLET PO PRN ×3 (12:02→18:38)
--- NOTE | 2020-09-18 12:05 | NUR ---
Family Contact: Pts mother, Zacarias ([phone]), contacted the SW and stated that she would the SW to reach out to the facility in [place] about placement and provided the SW with a number for a man named Thierno ([phone]).
--- NOTE | 2020-09-18 12:15 | NUR ---
[facility] Contact: KATHLEEN contacted Thierno ([phone]) at the [facility] and he stated that the pt will be evaluated around 10am the following day.
[2020-09-18] MEDS: ACETAMINOPHEN 325 MG TABLET PO PRN (14:24)
[2020-09-18 16:00] VITALS: BP 144/84
--- NOTE | 2020-09-18 16:12 | NUR ---
RN NOTES PATIENT REQUESTING FOR ATIVAN MEDICATION TO BE BACK, SPOKE W/ PATIENT AND PATIENT'S DAD, DR. PETERSON, STATED THAT "IT WAS A MISTAKE IT WAS DISCONTINUED". INFORMED DR. ASTORGA OF PATIENT'S AND PATIENT'S DAD'S REQUEST; PER DR. ASTORGA, IT WAS NOT A MISTAKE THAT MEDICATION WAS DISCONTINUED AND THAT'S NOT HOW THAT INFORMATION SHOULD BE COMMUNICATED. DR. ASTORGA W/ NEW ORDER TO D/C VISTARIL AND START ATIVAN 0.5MG Q12H PRN FOR ANXIETY. PATIENT MADE AWARE.
[2020-09-18] MEDS: LORAZEPAM 0.5 MG TABLET PO PRN (16:31)
[2020-09-18 20:12] VITALS: BP 132/78
[2020-09-18] MEDS: ATORVASTATIN 10 MG TABLET PO SCH (21:14)
[2020-09-18] MEDS: MAG HYDROX/AL HYDROX/SIMETH 30 ML UDC PO PRN (21:43)
--- NOTE | 2020-09-18 21:44 | NUR ---
GPS-RN NOTES: MAALOX 30ML PO GIVEN FOR INDIGESTION.
[2020-09-19] MEDS: IBUPROFEN 400 MG TABLET PO PRN ×2 (02:50→15:53)
--- NOTE | 2020-09-19 02:51 | NUR ---
GPS-RN NOTES: PATIENT C/O LOWER BACK PAIN ON A PAIN SCALE OF 6/10. PRN MOTRIN 800MG PO GIVEN. WILL CONTINUE TO REASSESS.
[2020-09-19] MEDS: LORAZEPAM 0.5 MG TABLET PO PRN ×2 (03:39→15:52)
--- NOTE | 2020-09-19 03:39 | NUR ---
GPS RN NOTE, PATIENT HAS A COMPLAINT OF FEELING ANXIOUS AND IS REQUESTING ATIVAN AT THIS TIME. PATIENT VITAL SIGNS ARE STABLE. GAVE ATIVAN 0.5MG PO Q12HR PRN ORDERED. WILL REASSESS FOR ANXIETY AND I WILL CONTINUE TO MONITOR THIS PATIENT WITH THE HELP OF STAFF.
[2020-09-19 08:00] VITALS: BP 114/68
[2020-09-19] MEDS: LEVOTHYROXINE SODIUM 88 MCG TABLET PO SCH (08:30)
[2020-09-19] MEDS: GABAPENTIN 300 MG CAPSULE PO SCH ×3 (08:31→16:14)
[2020-09-19] MEDS: BENZTROPINE MESYLATE (1 MG) 1 MG TABLET PO SCH ×2 (08:31→16:14)
[2020-09-19] MEDS: LISINOPRIL (10MG) 10 MG TABLET PO SCH (08:31)
[2020-09-19] MEDS: METFORMIN XR 500 MG TAB.SR.24H PO SCH (08:31)
[2020-09-19] MEDS: HALOPERIDOL 5 MG TABLET PO SCH ×4 (08:31→21:01)
[2020-09-19] MEDS: MAG HYDROX/AL HYDROX/SIMETH 30 ML UDC PO PRN ×3 (08:37→22:19)
--- NOTE | 2020-09-19 08:38 | NUR ---
RN NOTE- MAALOX REQUESTED FOR DYSPEPSIA. MAALOX 30ML GIVEN
--- NOTE | 2020-09-19 09:00 | NUR ---
RN NOTE- PT INTRUSIVE LOUD CURSING AT PARENTS ON PHONE THREATENING, MED COMPLIANT, REQUESTING PRNS CONSTANTLY, PO INTAKE GOOD
[2020-09-19] MEDS: HYDROCODONE/APAP 5/325MG TABLET PO PRN ×2 (10:33→22:18)
--- NOTE | 2020-09-19 10:34 | NUR ---
RN NOTE- NORCO 1/2 TAB ADMINISTERED PER ORDERS. ONE HALF TABLET WASTED INTO PILL DESTROYER W SEED[employer]ING SORTERKATEY ADAMES
--- NOTE | 2020-09-19 12:11 | NUR ---
[facility] Contact: KATHLEEN contacted Charly ([phone]) from the [facility] in [place] and transferred the phone so that he could assess the pt. He stated that the pt would not allow him to speak and hung up on her. KATHLEEN spoke to the pts mom, Zee ([phone]), and asked her to convince the pt to speak to the staff member. KATHLEEN then asked Charly to call back and make another attempt.
[2020-09-19 15:52] VITALS: BP 114/80
--- NOTE | 2020-09-19 15:54 | NUR ---
RN NOTE- C/O GENERALIZED PAIN AND RESTLESSNESS. ATIVAN 0.5 MG AND MOTRIN 800 MG GIVEN
--- NOTE | 2020-09-19 16:20 | NUR ---
[facility] Contact: SW contacted Charly ([phone]) from the [facility] in [place] and left a voicemail stating that the SW would like an update regarding whether or not the pt will be accepted to their facility.
[2020-09-19 20:22] VITALS: BP 114/52
[2020-09-19 20:23] VITALS: BP 114/52
[2020-09-19] MEDS: ATORVASTATIN 10 MG TABLET PO SCH (21:02)
[2020-09-19] MEDS: TEMAZEPAM 7.5 MG CAPSULE PO PRN (23:03)
[2020-09-20] MEDS: TEMAZEPAM 7.5 MG CAPSULE PO PRN ×2 (00:49→23:25)
--- NOTE | 2020-09-20 00:49 | NUR ---
GPS RN NOTE, PATIENT HAS A COMPLAINT OF NOT BEING ABLE TO SLEEP AND IS REQUESTING RESTORIL AT THIS TIME. PATIENT VITAL SIGNS ARE STABLE. GAVE RESTORIL 7.5MG PO QHS PRN ORDERED WILL REASSESS FOR INSOMNIA AND I WILL CONTINUE TO MONITOR THIS PATIENT WITH THE HELP OF STAFF.
[2020-09-20] MEDS: IBUPROFEN 400 MG TABLET PO PRN ×2 (00:51→13:49)
--- NOTE | 2020-09-20 00:51 | NUR ---
GPS RN NOTE, PATIENT HAS A COMPLAINT OF A LOWER BACK PAIN AT A 5 OUT 10 ON THE PAIN SCALE AND IS REQUESTING MOTRIN AT THIS TIME. PATIENT VITAL SIGNS ARE STABLE. GAVE MOTRIN 800 MG PO TID PRN ORDERED. WILL REASSESS PAIN AND I WILL CONTINUE TO MONITOR THIS PATIENT WITH THE HELP OF STAFF
--- NOTE | 2020-09-20 02:31 | NUR ---
Ms. Gera Burrell is drup seeking. Will come to the nurse from her room and ask for [place] or Motrin or Tylenol or slleping medicine. When she saw she had 1/2 tablet of [place] she verbalized angry. She had to be told to not yell others are around. She apoligized and quietted down. She was given Motrin after receiving [place] d/t she was saying 1/2 tablet "NOT going to WORK" She sebastian Ativan Restoril X2 this shift. She is manipulative, she try Kindness and being sweet and tell the nurse she likes her shoes, she will aslo try tears. She is manipulative after the 2nd restoril she went to beb layed onher right side and slept resp even and enlabored
[2020-09-20] MEDS: LORAZEPAM 0.5 MG TABLET PO PRN ×2 (04:54→16:54)
[2020-09-20 08:00] VITALS: BP 148/94
[2020-09-20] MEDS: GABAPENTIN 300 MG CAPSULE PO SCH ×3 (08:19→16:06)
[2020-09-20] MEDS: HALOPERIDOL 5 MG TABLET PO SCH ×4 (08:19→21:50)
[2020-09-20] MEDS: LEVOTHYROXINE SODIUM 88 MCG TABLET PO SCH (08:19)
[2020-09-20] MEDS: LISINOPRIL (10MG) 10 MG TABLET PO SCH (08:19)
[2020-09-20] MEDS: METFORMIN XR 500 MG TAB.SR.24H PO SCH (08:19)
[2020-09-20] MEDS: BENZTROPINE MESYLATE (1 MG) 1 MG TABLET PO SCH ×2 (08:19→16:06)
[2020-09-20] MEDS: HYDROCODONE/APAP 5/325MG TABLET PO PRN ×2 (10:21→22:23)
--- NOTE | 2020-09-20 10:26 | NUR ---
RN NOTE: PT COMPLAINING OF GENERALIZED PAIN NORCO 1/2 TAB ADMINISTERED PER ORDERS. ONE HALF TABLET WASTED W REMANUFACTURING TECHNICIAN ARIAL WITNESS.WILL CONTINUE MONITORING
[2020-09-20] MEDS: ACETAMINOPHEN 325 MG TABLET PO PRN ×2 (11:13→19:52)
[2020-09-20 16:26] VITALS: BP 140/96
--- NOTE | 2020-09-20 16:55 | NUR ---
GPS RN NOTE: PATIENT REQUEST ATIVAN 0.5 MG PO PRN GIVEN PER ORDER, WILL CONTINUE MONITORING
--- NOTE | 2020-09-20 19:35 | NUR ---
RN NOTE RECEIVED PATIENT AMBULATING IN & OUT OF HER ROOM, REDIRECTABLE AT THIS TIME. ASKED THE PATIENT HOW IS SHE FEELING & PATIENT STATED," I DID BETTER TODAY, I EXERCISED LIKE THIS & SHOWED COUPLE EXERCISES TO THE NURSE." PATIENT STARTED CRYING AFTER A WHILE, WHEN ASKED WHY SHE IS CRYING, PATIENT STATED," I AM SENSITIVE, I FEEL LIKE CRYING." EMOTIONAL SUPPORT PROVIDED. PATIENT STOPPED CRYING. PATIENT REFUSED FULL BODY ASSESSMENT AT THIS TIME & STATED THAT HER BODY IS CLEAR, HAS NO BRUISES OR DISCOLORATIONS. WILL CONTINUE TO MONITOR CLOSELY FOR SAFETY & BEHAVIOR.
[2020-09-20 19:45] VITALS: BP 106/83
--- NOTE | 2020-09-20 19:54 | NUR ---
RN NOTE: PAIN PATIENT C/O LOWER BACK PAIN 05/21 & WANTED TO TAKE TYLENOL AT THIS TIME. PRN TYLENOL 650 MG PO ADMINISTERED. WILL CONTINUE TO MONITOR.
[2020-09-20 20:16] VITALS: BP 106/83
[2020-09-20] MEDS: ATORVASTATIN 10 MG TABLET PO SCH (22:02)
[2020-09-20 22:15] VITALS: BP 141/97
--- NOTE | 2020-09-20 22:24 | NUR ---
RN NOTE: PAIN PT COMPLAINING OF GENERALIZED PAIN 5/10, NORCO 1/2 TAB ADMINISTERED PER ORDERS. ONE HALF TABLET WASTED WITH RELIEF SUPERVISOR HEAT TREATING FAA WITNESS. VITALS 141/97, 86, 18, 97.7, 98% AT RA. WILL CONTINUE MONITORING
--- NOTE | 2020-09-20 23:25 | NUR ---
GPS-RN NOTES: INSOMNIA PATIENT C/O INABILITY TO SLEEP. PRN RESTORIL 7.5 MG PO GIVEN. WILL CONTINUE TO MONITOR.
[2020-09-21] MEDS: MAG HYDROX/AL HYDROX/SIMETH 30 ML UDC PO PRN ×2 (03:53→21:28)
--- NOTE | 2020-09-21 03:55 | NUR ---
RN NOTE: INDIGESTION PATIENT C/O UPSET STOMACH & REQUESTED TO TAKE MAALOX. PRN MAALOX ADMINISTERED ORDERED. WILL CONTINUE TO MONITOR.
[2020-09-21] MEDS: LORAZEPAM 0.5 MG TABLET PO PRN ×2 (04:56→17:27)
--- NOTE | 2020-09-21 04:57 | NUR ---
RN NOTES: ANXIETY PATIENT VERBALIZED THAT SHE IS ANXIOUS AND RESTLESS. PRN ATIVAN 0.5 MG PO GIVEN. WILL CONTINUE TO MONITOR.
[2020-09-21] MEDS: LEVOTHYROXINE SODIUM 88 MCG TABLET PO SCH (07:30)
[2020-09-21 08:00] VITALS: BP 155/74
[2020-09-21] MEDS: LISINOPRIL (10MG) 10 MG TABLET PO SCH (09:24)
[2020-09-21] MEDS: METFORMIN XR 500 MG TAB.SR.24H PO SCH (09:25)
[2020-09-21] MEDS: GABAPENTIN 300 MG CAPSULE PO SCH ×3 (09:25→17:27)
[2020-09-21] MEDS: BENZTROPINE MESYLATE (1 MG) 1 MG TABLET PO SCH ×2 (09:25→17:26)
[2020-09-21] MEDS: HALOPERIDOL 5 MG TABLET PO SCH ×4 (09:26→21:23)
[2020-09-21] MEDS: HYDROCODONE/APAP 5/325MG TABLET PO PRN ×2 (10:34→23:13)
[2020-09-21] MEDS: IBUPROFEN 400 MG TABLET PO PRN ×2 (13:07→21:22)
[2020-09-21 16:00] VITALS: BP 150/73
[2020-09-21] MEDS: ACETAMINOPHEN 325 MG TABLET PO PRN (17:26)
--- NOTE | 2020-09-21 17:31 | NUR ---
PATIENT C/O ANXIETY MEDICATED WITH ATIVAN 0.5 MG PO GIVEN. WILL CONTINUE TO MONITOR.
[2020-09-21 20:00] VITALS: BP 124/75
[2020-09-21] MEDS: ATORVASTATIN 10 MG TABLET PO SCH (21:23)
--- NOTE | 2020-09-21 21:23 | NUR ---
PT REQUESTED MEDICATION FOR GENERALIZED PAIN, SPECIFICALLY NORCO. MEDICATION NOT DUE AT THIS TIME, PT REQUESTS IBUPROFEN, AT THIS TIME. IBUPROFEN 800MG ADMINISTERED PRN ORDERED. WILL CONT TO MONITOR
--- NOTE | 2020-09-21 23:13 | NUR ---
PT REQUESTING NORCO, MEDICATION FOR BACK PAIN AT THIS TIME. UNABLE TO SLEEP WITH PAIN. NORCO 5-325 ADMINISTERED PRN ORDERED. WILL CONT TO MONITOR CLOSELY.
--- NOTE | 2020-09-22 02:50 | NUR ---
RN NOTE-UNABLE TO STAY ASLEEP PT UNABLE TO STAY ASLEEP, FREQUENTLY WAKES UP, REQUESTED SLEEPING AID. RESTORIL 7.5MG ADMINISTERED PRN ORDERED. WILL CONT TO MONITOR
[2020-09-22] MEDS: TEMAZEPAM 7.5 MG CAPSULE PO PRN (02:51)
[2020-09-22 08:00] VITALS: BP 114/69
[2020-09-22] MEDS: GABAPENTIN 300 MG CAPSULE PO SCH ×2 (08:03→12:04)
[2020-09-22] MEDS: BENZTROPINE MESYLATE (1 MG) 1 MG TABLET PO SCH (08:03)
[2020-09-22] MEDS: METFORMIN XR 500 MG TAB.SR.24H PO SCH (08:03)
[2020-09-22] MEDS: LEVOTHYROXINE SODIUM 88 MCG TABLET PO SCH (08:03)
[2020-09-22 08:04] VITALS: BP 114/69
[2020-09-22] MEDS: HALOPERIDOL 5 MG TABLET PO SCH ×2 (08:04→12:04)
[2020-09-22] MEDS: LISINOPRIL (10MG) 10 MG TABLET PO SCH (08:04)
--- NOTE | 2020-09-22 08:13 | NUR ---
[facility] Contact: KATHLEEN contacted Charly ([phone]) from the [facility] in [place] and left a voicemail inquiring if the pt can be transferred to their facility today.
--- NOTE | 2020-09-22 08:26 | NUR ---
Conservator Contact: KATHLEEN contacted the pts conservator, Grabiel ([phone]), as well as the pts mother, Zee ([phone]), and it was discussed that the pt was not accepted to the [facility] in [place] and therefore the family members are willing to accept [facility] as the pts discharge plan for today. KATHLEEN stated that an ambulance would be called to pick the pt up and that the pt will be followed up by psychiatrist, Dr Sawant.
[2020-09-22] MEDS: LORAZEPAM 0.5 MG TABLET PO PRN (08:55)
[2020-09-22] MEDS: IBUPROFEN 400 MG TABLET PO PRN (08:55)
--- NOTE | 2020-09-22 08:55 | NUR ---
RN NOTE- PT W GENERALIZED DISCOMFORT AND ANXIETY. MOTRIN 800 MG AND ATIVAN 0.5 MG GIVEN
--- NOTE | 2020-09-22 09:00 | NUR ---
RN NOTE- PT IRRITABLE, MED SEEKING, PO INTAKE GOOD, MED COMPLIANT, FOCUS ON DC. DENIES ALL
[2020-09-22] MEDS: HYDROCODONE/APAP 5/325MG TABLET PO PRN (11:09)
--- NOTE | 2020-09-22 13:30 | NUR ---
Discharge Note: Pt will be discharged to [facility] located at [address] [place] [address]; . Pt will be discharged via [id number] at 2PM. Pts conservator, Grabiel ([phone]), was informed of the discharge and accepted the placement. Upon discharge, the pt appears to be in a euthymic mood and presents with an anxious affect. Pt denies both suicidal and homicidal ideation as well as auditory and visual hallucinations. Pt appears to be alert and oriented x4 (time, place, self and situation). Pt appears to be groomed and appropriately dressed. Pt will be under the care of her psychiatrist, Dr. Sawant, located at [address], [address] [place] [address]; and her fruit stuffer, Dr. Galvez, located at [address] [address], [place] [address]; . The choice of vendor form and multidisciplinary exit care form were done, printed, signed, and given to the patient.
--- NOTE | 2020-09-22 13:55 | NUR ---
RN NOTE- PATIENT DC TO [facility] AT THIS TIME VIA [facility]. PT IS ALERT ORIENTED TO PERSON PLACE TIME PURPOSE. DENIES SI HI AH VH. VS STABLE. VALUABLES RETURNED TO PT AND SIGNED FOR. ID [id number] REMOVED. REPORT CALLED TO SHANIQUE AT FACILITY. ESCORTED OFF UNIT BY STAFF.
== END 2020-09-22 13:55 | DRG 885 ==
LOC: GPS 11:14
PROVIDERS: ADMIT Psychiatry & Neurology Psychosomatic Medicine; ATTEND Nurse Practitioner Acute Care
DX: F25.0 Schizoaffective disorder, bipolar type (principal); E11.9 Type 2 diabetes mellitus without complications; E03.9 Hypothyroidism, unspecified; F17.210 Nicotine dependence, cigarettes, uncomplicated; E78.5 Hyperlipidemia, unspecified; F19.90 Other psychoactive substance use, unspecified, uncomplicated; F90.9 Attention-deficit hyperactivity disorder, unspecified type; F60.3 Borderline personality disorder; F29 Unspecified psychosis not due to a substance or known physiological condition; Z91.19 Patient's noncompliance with other medical treatment and regimen; I10 Essential (primary) hypertension; W54.0XXS Bitten by dog, sequela; F10.10 Alcohol abuse, uncomplicated; Y90.9 Presence of alcohol in blood, level not specified
CPT/HCPCS: 36415; 80048-TC; 80061-TC; 80076-TC; 82962-TC; 83735-TC; 84100-TC; 84443-TC; 85025-TC; 87081-TC; J3490; Q0177